=== PATIENT | female | born 1990 | race Caucasian/White ===

== ENCOUNTER 2022-03-20 08:08 | Inpatient (IN) | payer OTHER ==
[~2022-03-20] VITALS: Ht 149.9 cm; Wt 55.0 kg
[2022-03-20 08:56] LABS: BASOPHILS ABSOLUTE AUTO 0.11 K/mm3 (0.00-0.23); BASOPHILS PERCENT AUTO 0 % (0-2); EOSINOPHILS ABSOLUTE AUTO 0.36 K/mm3 (0.00-0.68); EOSINOPHILS PERCENT AUTO 2 % (0-6); Hematocrit 35.4 % (33.0-51.0); Hemoglobin 11.6 g/dL (11.5-16.0); Mean Corpuscular HGB 26.9 pg (26.0-34.0); Mean Corpuscular HGB Conc 32.8 g/dL (31.5-36.5); Mean Corpuscular Volume 82 fL (80-100); Mean Platelet Volume 9.9 fL (9.1-12.4); NRBC ABSOLUTE 0.03 K/mm3 (0.00-0.02); NRBC Auto 0.1 /100 WBC (0.0-0.2); Platelet Count 608 K/mm3 (150-400); RDW Coefficient Variation 12.8 % (11.7-14.2); RDW Standard Deviation 37.9 fL (35.1-46.3); Red Blood Cell Count 4.31 M/mm3 (3.80-5.20); White Blood Cell Count 24.68 K/mm3 (4.00-11.30)
[2022-03-20 08:57] LABS: IMMATURE GRAN PERCENT AUTO 1 % (0-1); LYMPHOCYTES ABSOLUTE AUTO 4.44 K/mm3 (0.84-5.20); LYMPHOCYTES PERCENT AUTO 18 % (21-46); MONOCYTES ABSOLUTE AUTO 1.04 K/mm3 (0.16-1.47); MONOCYTES PERCENT AUTO 4 % (4-13); NEUTROPHILS ABSOLUTE AUTO 18.43 K/mm3 (1.96-9.15); NEUTROPHILS PERCENT AUTO 75 % (41-73)
[2022-03-20 09:15] LABS: Performing Lab BLOODWORKS; Test Name ABID
[2022-03-20] MEDS ORDERED: PRENATAL TABLE1 EAC2 PO (09:23)
[2022-03-20] MEDS ORDERED: PRENATAL TABLE1 EAC2 (09:23)
[2022-03-20 16:33] LABS: U Amphetamine Screen DETECTED; U Barbituate Screen Not Detected; U Benzodiazapine Screen Not Detected; U Buprenorphine Screen Not Detected; U Cannabinoids Screen Not Detected; U Cocaine Screen Not Detected; U Methadone Screen Not Detected; U Methamphetamine Screen DETECTED; U Opiates Screen Not Detected; U Oxycodone Screen Not Detected; U Phencyclidine Screen Not Detected; U Propoxyphene Screen Not Detected
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
[2022-03-21 09:10] LABS: BASOPHILS ABSOLUTE AUTO 0.07 K/mm3 (0.00-0.23); BASOPHILS PERCENT AUTO 0 % (0-2); EOSINOPHILS ABSOLUTE AUTO 0.42 K/mm3 (0.00-0.68); EOSINOPHILS PERCENT AUTO 2 % (0-6); Hemoglobin 8.5 g/dL (11.5-16.0); Mean Corpuscular HGB 26.6 pg (26.0-34.0); Mean Corpuscular HGB Conc 31.5 g/dL (31.5-36.5); Mean Corpuscular Volume 84 fL (80-100); Mean Platelet Volume 9.9 fL (9.1-12.4); Platelet Count 437 K/mm3 (150-400); RDW Coefficient Variation 13.2 % (11.7-14.2); RDW Standard Deviation 40.2 fL (35.1-46.3); White Blood Cell Count 23.22 K/mm3 (4.00-11.30)
[2022-03-21 09:16] LABS: IMMATURE GRAN ABSOLUTE AUTO 0.24 K/mm3 (0.00-0.10); IMMATURE GRAN PERCENT AUTO 1 % (0-1); LYMPHOCYTES ABSOLUTE AUTO 5.77 K/mm3 (0.84-5.20); LYMPHOCYTES PERCENT AUTO 25 % (21-46); MONOCYTES ABSOLUTE AUTO 1.25 K/mm3 (0.16-1.47); MONOCYTES PERCENT AUTO 5 % (4-13); NEUTROPHILS ABSOLUTE AUTO 15.47 K/mm3 (1.96-9.15); NEUTROPHILS PERCENT AUTO 67 % (41-73)
--- NOTE | 2022-03-21 10:23 | NUR ---
Pt resting in bed, holding sleeping nb. Denies needs at this time.
--- NOTE | 2022-03-21 13:58 | NUR ---
Pt asleep, holding nb. RN woke pt and moved nb to [facility]. Pt reminded again not to sleep with in nb in arms.
--- NOTE | 2022-03-21 15:00 | NUR ---
CPS NOTE Hotline nutrition representative called to notify [facility] that case has been assigned to [facility].
== END 2022-03-22 19:33 | disposition home or self-care (01) | DRG 805 ==
LOC: OBS 08:08 → BC 08:08 → OBS 08:21 → BC 08:33
PROVIDERS: Family Medicine; ADMIT Family Medicine
PROC: 10E0XZZ Delivery of Products of Conception, External Approach (ICD-10-PCS; principal; 2022-03-20)
PROC: 3E033VJ Introduction of Other Hormone into Peripheral Vein, Percutaneous Approach (ICD-10-PCS; 2022-03-20)
DX: O36.0130 Maternal care for anti-D [Rh] antibodies, third trimester, not applicable or unspecified (principal); O45.93 Premature separation of placenta, unspecified, third trimester; Z37.0 Single live birth; O75.3 Other infection during labor; F15.20 Other stimulant dependence, uncomplicated; N39.0 Urinary tract infection, site not specified; O99.324 Drug use complicating childbirth; O99.824 Streptococcus B carrier state complicating childbirth; B96.20 Unspecified Escherichia coli [E. coli] as the cause of diseases classified elsewhere; O69.1XX0 Labor and delivery complicated by cord around neck, with compression, not applicable or unspecified; O99.334 Smoking (tobacco) complicating childbirth; F17.210 Nicotine dependence, cigarettes, uncomplicated; Z3A.39 39 weeks gestation of pregnancy; Z67.91 Unspecified blood type, Rh negative; Z79.899 Other long term (current) drug therapy; Z71.51 Drug abuse counseling and surveillance of drug abuser; Z67.31 Type AB blood, Rh negative
CPT/HCPCS: 36415; 85025; 86255; 86850; 86870; 86900; 86901; 86906; A9270; J0290; J1885; J2210; J2590; J7120

== ENCOUNTER 2023-09-11 19:05 | Emergency (ER) | payer OTHER ==
[~2023-09-11] VITALS: Ht 149.9 cm; Wt 59.0 kg
[~2023-09-11 19:05] MED LIST: PRENATAL TABLE1 EAC2; PRENATAL TABLE1 EAC2 PO
[2023-09-11] MEDS ORDERED: HYDROcodone 5-APAP 325 TAB PO ONE (21:30)
[2023-09-11] MEDS ORDERED: RX PP HYDROcodone-APAP 1 Prepack/30MLBTL UD ONE (21:30)
[2023-09-11] MEDS ORDERED: HYDR1TAB94 PO (21:32)
[2023-09-11 21:45] VITALS: BP 141/78
== END 2023-09-11 21:48 | disposition home or self-care (01) ==
LOC: ER 19:05
DX: S20.214A Contusion of middle front wall of thorax, initial encounter (principal); S20.311A Abrasion of right front wall of thorax, initial encounter; F17.200 Nicotine dependence, unspecified, uncomplicated; V48.5XXA Car driver injured in noncollision transport accident in traffic accident, initial encounter; Z79.899 Other long term (current) drug therapy
CPT/HCPCS: 71046; 99284-25; A9270